=== PATIENT | female | born 1940 | race Caucasian/White ===

== ENCOUNTER 2017-12-21 15:11 | Emergency (ER) | payer MEDICARE, OTHER ==
[~2017-12-21] VITALS: Ht 162.6 cm; Wt 73.2 kg
[2017-12-21 15:12] VITALS: BP 118/73
== END 2017-12-21 17:15 | disposition home or self-care (01) ==
LOC: ER 15:12
DX: S63.592A Other specified sprain of left wrist, initial encounter (principal); S50.02XA Contusion of left elbow, initial encounter; Z88.0 Allergy status to penicillin; W18.49XA Other slipping, tripping and stumbling without falling, initial encounter; Y93.89 Activity, other specified; Y92.89 Other specified places as the place of occurrence of the external cause; Y99.9 Unspecified external cause status
CPT/HCPCS: 73080; 73110; 99284

== ENCOUNTER 2018-08-27 19:18 | Emergency (ER) | payer MEDICARE ==
[~2018-08-27] VITALS: Ht 160 cm; Wt 73.9 kg
[~2018-08-27 19:18] MED LIST: CIPR-230 PO
[2018-08-27] MEDS ORDERED: aspirin 81mg tab.chew PO ONE (19:20)
[2018-08-27 19:33] VITALS: BP 134/61
[2018-08-27 19:46] LABS: BASOPHILS % (AUTO) 0.4 % (0-1); EOSINOPHILS # (AUTO) 0.1 X10'3 (0-0.9); EOSINOPHILS % (AUTO) 1.5 % (0-6); HEMATOCRIT 37.6 % (35.0-45.0); HEMOGLOBIN 12.3 g/dl (12.0-16.0); LYMPHOCYTES # (AUTO) 1.3 X10'3 (1.1-4.8); MEAN CORPUSCULAR HGB CONC 32.6 g/dL (33.0-36.5); MEAN CORPUSCULAR VOLUME 88.8 FL (78-98); MEAN PLATELET VOLUME 7.5 FL (7.4-10.4); MONOCYTES # (AUTO) 0.6 X10'3 (0-0.9); MONOCYTES % (AUTO) 6.7 % (2-12); NEUTROPHILS # (AUTO) 7.4 X10'3 (1.8-7.7); NEUTROPHILS % (AUTO) 77.4 % (42-75); PLATELET COUNT 313 X10'3 (140-440); RED BLOOD COUNT 4.23 X10'6 (4.20-5.60); RED CELL DISTRIBUTION WIDTH 13.7 % (11.5-14.5); WHITE BLOOD COUNT 9.5 X10'3 (4.5-11.0)
[2018-08-27 19:56] LABS: ALANINE AMINOTRANSFERASE 13 U/L (12-78); ALBUMIN 3.7 G/DL (3.4-5.0); ALBUMIN/GLOBULIN RATIO 1.2 (1.1-1.5); ALKALINE PHOSPHATASE 71 IU/L (46-116); ANION GAP 14 (8-16); ASPARTATE AMINO TRANSFERASE 6 U/L (10-37); BILIRUBIN,TOTAL 0.4 MG/DL (0.1-1.0); BLOOD UREA NITROGEN 13 MG/DL (7-18); BUN/CREATININE RATIO 15.9 (6.6-38.0); CALCIUM 8.4 MG/DL (8.5-10.1); CHLORIDE 103 MMOL/L (99-107); CREATININE 0.82 MG/DL (0.40-0.90); GLUCOSE 90 MG/DL (70-104); POTASSIUM 3.9 MMOL/L (3.5-5.1); SODIUM 142 MMOL/L (135-145); TOTAL CARBON DIOXIDE 25.4 MMOL/L (24-32); TOTAL PROTEIN 6.8 G/DL (6.4-8.2); eGFR 68 ML/MIN
[2018-08-27 20:02] LABS: MAGNESIUM 1.5 MG/DL (1.5-2.4)
[2018-08-27] MEDS ORDERED: acetaminophen 325mg tablet PO ONE (20:20)
[2018-08-27 20:46] LABS: CLARITY,URINE CLEAR (Clear); COLOR,URINE YELLOW (Yellow); GLUCOSE, URINE NEGATIVE (Neg); KETONES,URINE NEGATIVE (Neg); LEUKOCYTE ESTERASE ,URINE SMALL (Neg); NITRITES, URINE NEGATIVE (Neg); OCCULT BLOOD,URINE TRACE-INTACT (Neg); PH,URINE 5.5 (4.8-8.0); PROTEIN,URINE NEGATIVE (Neg); UROBILINOGEN,URINE 0.2 E.U/dL (0.2-1.0)
[2018-08-27 20:50] LABS: UA COLLECTION TYPE CLN CATCH MIDSTREAM
[2018-08-27 20:54] LABS: MUCUS STRANDS MODERATE /LPF (Neg); SQUAMOUS EPITHELIAL CELL,UR MANY /LPF (FEW)
[2018-08-27 20:55] LABS: BACTERIA,URINE FEW /HPF (Neg); RBC,URINE 0-2 /HPF (0-2); WBC,URINE 0-4 /HPF (0-4)
[2018-08-27] MEDS ORDERED: cephalexin 250mg capsule PO ONE (21:10)
[2018-08-27] MEDS ORDERED: CEPH500C5 PO (21:12)
== END 2018-08-27 21:29 | disposition home or self-care (01) ==
LOC: ER 19:18
DX: S00.83XA Contusion of other part of head, initial encounter (principal); S10.93XA Contusion of unspecified part of neck, initial encounter; R07.89 Other chest pain; R53.1 Weakness; G20 Parkinson's disease; Z88.0 Allergy status to penicillin; Z79.899 Other long term (current) drug therapy; W22.8XXA Striking against or struck by other objects, initial encounter; Y93.89 Activity, other specified; Y92.89 Other specified places as the place of occurrence of the external cause; Y99.8 Other external cause status
CPT/HCPCS: 36415; 71045; 80053; 81001; 83735; 83880; 84484; 85025; 93005; 99284

== ENCOUNTER 2018-11-15 19:52 | Emergency (ER) | payer MEDICARE ==
[~2018-11-15] VITALS: Ht 162.6 cm; Wt 71.0 kg
[~2018-11-15 19:52] MED LIST changes: +CEPH500C5 PO; -CIPR-230 PO
[2018-11-15 22:10] VITALS: BP 126/59
[2018-11-15] MEDS ORDERED: ketorolac tromethamine 15mg/ml inj. IM ONE (23:40)
[2018-11-15] MEDS ORDERED: orphenadrine citrate 60mg/2ml inj. IM ONE (23:40)
== END 2018-11-16 00:07 | disposition home or self-care (01) ==
LOC: ER 19:52
DX: S00.03XA Contusion of scalp, initial encounter (principal); G20 Parkinson's disease; Z88.0 Allergy status to penicillin; Z88.1 Allergy status to other antibiotic agents; W18.39XA Other fall on same level, initial encounter; Y93.89 Activity, other specified; Y92.89 Other specified places as the place of occurrence of the external cause; Y99.8 Other external cause status
CPT/HCPCS: 70450; 96372; 99284; J1885; J2360

== ENCOUNTER 2019-04-18 16:45 | Emergency (ER) | payer MEDICARE ==
[~2019-04-18] VITALS: Ht 160 cm; Wt 65.9 kg
[2019-04-18 16:46] VITALS: BP 135/90
[2019-04-18] MEDS ORDERED: ketorolac trometh inj. 60 MG/2 ML VIAL IM ONE (18:00)
[2019-04-18] MEDS ORDERED: acetaminophen 325mg tablet PO ONE (18:05)
[2019-04-18] MEDS ORDERED: LIDOcaine 5% patch TP SCH (18:10)
== END 2019-04-18 18:47 | disposition home or self-care (01) ==
LOC: ER 16:46
DX: S76.912A Strain of unspecified muscles, fascia and tendons at thigh level, left thigh, initial encounter (principal); G20 Parkinson's disease; Z88.0 Allergy status to penicillin; Z79.2 Long term (current) use of antibiotics; X58.XXXA Exposure to other specified factors, initial encounter; Y93.89 Activity, other specified; Y92.89 Other specified places as the place of occurrence of the external cause; Y99.8 Other external cause status
CPT/HCPCS: 73521; 73552; 96372; 99284; J1885

== ENCOUNTER 2019-12-07 17:22 | Emergency (ER) | payer MEDICARE ==
[~2019-12-07] VITALS: Ht 160 cm; Wt 59.9 kg
[2019-12-07] MEDS ORDERED: ketorolac tromethamine 0.5% ophthalmic drops EACHEYE ONE (18:40)
[2019-12-07 18:49] VITALS: BP 106/60
== END 2019-12-07 19:05 | disposition home or self-care (01) ==
LOC: ER 17:22
DX: H10.13 Acute atopic conjunctivitis, bilateral (principal); G20 Parkinson's disease; Z88.0 Allergy status to penicillin
CPT/HCPCS: 99282

== ENCOUNTER 2021-04-02 09:43 | Emergency (ER) | payer MEDICARE ==
[~2021-04-02] VITALS: Ht 160 cm; Wt 55.0 kg
[2021-04-02 10:00] VITALS: BP 99/65
== END 2021-04-02 12:20 | disposition home or self-care (01) ==
LOC: ER 09:44
DX: U07.1 COVID-19 (principal); G20 Parkinson's disease; J02.9 Acute pharyngitis, unspecified; R05.9 Cough, unspecified; R32 Unspecified urinary incontinence; Z87.440 Personal history of urinary (tract) infections; Z88.0 Allergy status to penicillin
CPT/HCPCS: 87635; 99283; C9803

== ENCOUNTER 2023-12-26 20:45 | Emergency (ER) | payer MEDICARE, MEDICAID ==
[~2023-12-26] VITALS: Ht 160 cm; Wt 71.0 kg
[2023-12-26 22:15] VITALS: TEMP 98.1
[2023-12-26] MEDS: ketorolac trometh 15mg/ml vial 15 MG/ML ML IM ONE (22:52)
[2023-12-26 23:17] VITALS: BP 122/61; PULSE 66; RESP 16; O2SAT 95
== END 2023-12-26 23:34 | disposition home or self-care (01) ==
LOC: ER 20:46
DX: M25.561 Pain in right knee (principal); Z88.0 Allergy status to penicillin
CPT/HCPCS: 73560; 96372; 99284; J1885

== ENCOUNTER 2024-10-24 15:11 | Emergency (ER) | payer MEDICARE, MEDICAID ==
[~2024-10-24] VITALS: Ht 161.3 cm; Wt 70.0 kg
[2024-10-24 15:16] VITALS: TEMP 97.9
--- NOTE | 2024-10-24 15:36 | Physician Documentation ---
History of Present Illness ~ Chief Complaint: Hip pain Stated Complaint: FALL Time Seen by MD: 15:31 Primary Medical Doctor: danielle SHAHID This is a very pleasant 84-year-old female who was brought in to us for evaluation of potential injuries sustained in a mechanical ground level fall. She states that she was walking with her walker, hit the door jamb, and I went flying, I was not meant to fly, not even an airplane". She reports an immediate onset pain in her right hip. The pain is now improving. She did strike her head. No loss of consciousness. No blood thinners. She states that her ankle is not looking right. Denies any headache, chest pain, difficulty breathing, nausea, vomiting, abdominal pain. No concern for tobacco, alcohol or illicit substances use Tetanus within 5 Years?: No Medication Reconciliation Allergies: Coded Allergies: Penicillins (Verified Allergy, Unknown, Rash, vomiting, 12/26/23) Past Medical History Past Medical History: Parkinson's Disease, UTI Past Surgical History: no surgical history Alcohol Use: None Lives with: Family Lives In: Home Review of Systems ROS 10 point review of systems was performed and unless noted above in HPI is negative for acute process/complaint. Physical Exam Vital Signs: Temperature: 97.9, Source: Oral, Heart Rate: 71, Respiratory Rate: 16, BP: 146/81, Pulse Oximetry: 96, Weight: 70.000 Oxygen Flow Rate: 0 Physical Exam GENERAL: Awake, alert, oriented, GCS 15, no apparent distress, non-toxic appearing, answers questions, follows commands appropriately. Pleasant elderly lady examined in bed 7. HEENT: Atraumatic, normocephalic, pupils equal, extraocular muscles intact, sclerae anicteric, mucus membranes moist, oropharynx is clear, no stridor. NECK: supple, full active range of motion, trachea midline, no thyromegaly, no lymphadenopathy, no JVD. CARDIOVASCULAR: regular rate/rhythm, no murmurs/gallops/rubs, Pulses are 2+ in all extremities and symmetric. Capillary refill less than 2 seconds. PULMONARY: Nonlabored, good air movement ,no respiratory distress, speaking in full sentences, clear to auscultation bilaterally, no wheezing, no ronchi, no rales, no accessory muscle use. GASTROINTESTINAL: Soft, non-tender, non-distended, normal active bowel sounds, no organomegaly, no pulsatile masses, no CVA tenderness. NEUROLOGIC: Lucid with normal mental status. Normal facial symmetry. Moves all extremities symmetrically and with purpose. No truncal ataxia. Speech is fluid without evidence of dysarthria or aphasia, no focal deficits appreciated. MUSCULOSKELETAL: There is full range of motion of all extremities. There is no joint pain or joint swelling or joint erythema. There is no muscle pain or tenderness or swelling. EXTREMITIES: warm, well-perfused, no cyanosis, no clubbing, no edema, no acute deformities. Skin: warm, dry, no rashes or lesions, no jaundice, no petechiae orpurpura. No ecchymosis. PSYCHIATRIC: Normal affect, normal insight, normal concentration. Focused exam: Right lower extremity examined. The ankle is internally rotated and there appears to be some swelling over the lateral malleolus. It is somewhat tender with the range of motion done passively. No tenderness to palpation over the pubic symphysis, no tenderness to palpation over the greater trochanter. Range of motion not tested in order to avoid causing pain. Neurovascularly intact. Patient has been placed in a C-collar by the EMS. She has severe left lateral angulation of her cervical spine. Progress Results/Orders Results/Orders Orders - TENISHA HILL DO Hip Unilateral 2 Views (10/24/24 15:26) Ankle, Complete(3vw Min) (10/24/24 15:30) Ct Head (10/24/24 16:00) Ct Cervical Spine (10/24/24 16:01) Completed Orders - TENISHA HILL DO Hip Unilateral 2 Views (10/24/24 15:26) Ankle, Complete(3vw Min) (10/24/24 15:30) Ct Head (10/24/24 16:00) Ct Cervical Spine (10/24/24 16:01) Vital Signs 10/24/24 10/24/24 10/24/24 15:16 15:37 16:25 Temp 97.9 Pulse 71 78 Resp 16 16 16 B/P (MAP) 146/81 162/87 (112) Pulse Ox 96 99 O2 Flow Rate 0 0 Medical Decision Making Findings Facility Status: ED Holds, [facility] process The plan was discussed with the patient, who demonstrates clear understanding of the plan and is in agreement with the plan unless otherwise noted in the chart. All questions have been answered, all concerns were addressed unless otherwise documented. I was available throughout their ED stay for frequent reassessment and questions. Differential Diagnoses (considered and possible or likely): [Ground level fall, acute traumatic pain, closed head injury, concussion, subdural, subarachnoid, cervical spine fracture or subluxation, right hip fracture, dislocation, right ankle fracture or dislocation] ??Differential Diagnoses (considered and unlikely, not requiring evaluation currently): [No evidence of lateralizing signs to suspect a stroke at this time] MDM Data Please see [facility] for the following: Independent Historians and external Records Review. Historian: [Patient] Independent Historians: ?[EMS, record review] Medication Management: [Reviewed medication list] Social History and determinants: [Reviewed] Please see the body of the note for the following: Any independent interpretations of ECG, imaging studies. All vitals signs/haemodynamics, ordered tests were independently reviewed and interpreted by myself. Nursing triage complaint and vitals reviewed, additional nursing notes were reviewed as available and I agree unless otherwise noted or documented in contradiction in the chart Vital Signs: Independently reviewed Labs: Independently interpreted Imaging: Independently interpreted Old Medical Records: Independently reviewed, see [facility] for relevant summary and information Pulse Oximetry: [96%] interpreted as [normal on room air] by me [Fixture Builder: [Regular Rate, Regular rhythm, no ectopy, NSR] reviewed and interpreted by me] Additionally notably showing: [Hemodynamics reviewed. The patient isn't febrile, not tachycardic, no evidence of hypotension respiratory distress. Head CT was obtained showing no acute intracranial hemorrhage. CT C-spine was obtained showing no fracture or subluxation. Foot and ankle showed old fracture. Mild soft tissue edema. Hip x-ray showed no fracture or dislocation.] Tests considered but not ordered include: [Hematologic workup has been considered but does not appear to be necessary given mechanical nature of the injury.] Social Determinants of Health Impact: Patient was evaluated in [facility] [place] healthcare due to below par ratio of patient to medical providers. [] Comorbid Conditions Impacting Present Evaluation and Care/Treatment: [Dementia, poor ambulation skills] Management Discussions with other Healthcare Providers: [None] Treatment and Disposition Medication Management (Given or considered): [Pain management was offered, but patient declined]. See EMR for details Consideration for Hospitalization/Escalation/Deescalation of Care: Admission for observation has been considered, [however the patient is able to tolerate p.o., their symptoms are controlled, they are able to rely on oral medications, and their chief complaint/diagnosis can be managed on outpatient basis.] ?ED Course:?[No clinical deterioration.] ?Shared decision making:?[Patient is hemodynamically stable for discharge home with follow with their primary care provider. [ ] Specific and cautious return precautions provided and discussed with full understanding. Any incidental findings were also discussed and follow up recommendations given. [] All questions answered. Patient/family were able to verbalize back return precautions. Patient/family agree to plan. Copies of imaging and laboratory studies were provided.] Code status:?FULL Please see the full Electronic Medical Record for full details of nursing documentation, medications list, other records of complete past medical history and conditions, vital signs, laboratory studies, and any radiologic study interpretations by radiologists. Portions of this note were completed using [employer] dictation software and as a result there may exist minor errors in spelling. I have reviewed elements of past family and social history and agree as included in note. Departure Disposition: 01 HOME / SELF CARE / HOMELESS Impression: Primary Impression: Ground-level fall Additional Impressions: Acute traumatic pain Contusion of right hip Right ankle sprain Closed head injury Condition: Stable Discharge Instructions: Fall Prevention in the Home, Adult, Head Injury, Adult Referrals: NO PRIMARY CARE PROVIDER (PCP) Education Educated: Patient Educated regarding: diagnosis, treatment, prognosis, need for follow up Signature Scribe Signature: No scribe Attestation: This note accurately reflects clinical decisions, work performed by myself, DO LIZ Dunn NICHOLAS M DO Oct 24, 2024 15:35
--- NOTE | 2024-10-24 16:08 | RADIOLOGY REPORT ---
Indication: RIGHT ANKLE PAIN Technique: DI ANKLE, COMPLETE(3VW MIN)ANKLECPLT Comparison: None FINDINGS/IMPRESSION: Moderate degenerative changes of the right ankle. Cortical irregularity of the distal fibula / lateral malleolus, likely old fracture. Correlate with point tenderness to exclude superimposed acute fracture. Mild soft tissue edema about the medial and lateral malleolar region. Osteopenia.
--- NOTE | 2024-10-24 16:12 | RADIOLOGY REPORT ---
CT CT HEAD Indication: fall with head strike, pain EXAM DATE: 10/24/2024 03:53 PM COMPARISON: None TECHNIQUE: CT of the head without intravenous contrast. RADIATION DOSE: CTDIvol: 64 mGy, DLP: 1137 mGy*cm FINDINGS: There is no intracranial hemorrhage. There is no extra-axial fluid, mass, mass effect or midline shif t. The ventricles are midline and normal in size. Basilar cisterns are patent. Mild periventricular a nd subcortical white matter chronic microvascular ischemic changes. Mild global cerebral volume loss . The paranasal sinuses and mastoids are well-pneumatized. Imaged portion of the orbits are unremarkabl e. IMPRESSION: No intracranial hemorrhage or mass effect. Mild chronic microvascular ischemic changes. Mild global cerebral volume loss.
--- NOTE | 2024-10-24 16:16 | RADIOLOGY REPORT ---
CLINICAL INDICATION: HIP PAIN TECHNIQUE: 3 radiographic views of the right hip were obtained. Comparison: None FINDINGS/IMPRESSION: There is no evidence of acute fracture or dislocation. Moderate degenerative changes of bilateral hips. Left-sided sacral nerve stimulator is noted. Severe degenerative changes of the lower lumbar spine. The alignment is anatomical. Phleboliths are noted within the pelvis.
--- NOTE | 2024-10-24 16:20 | RADIOLOGY REPORT ---
Indication: fall with head strike, pain Technique: CT axial images of the cervical spine are obtained without contrast. Coronal and sagittal reformats were obtained. Radiation Dose Information: CTDI volume is 23 mGy. Dose-length product is 507 mGy*cm Comparison: None FINDINGS: The cervical vertebral body heights are maintained. Reversal of normal cervical spine curvature. 3 m m anterolisthesis C3 upon C4. There is 3 mm anterolisthesis C7 upon T1. Cervical dextrocurvature. Th ere is moderate to severe multilevel disc space narrowing. No prevertebral edema. Facet articulations demonstrate moderate to severe facet hypertrophic changes . The atlantooccipital, atlantoaxial artic ulations are intact. IMPRESSION: Moderate to severe cervical degenerative disc disease. Reversal of cervical spine curvature as described. Moderate to severe facet hypertrophic changes.
[2024-10-24 17:07] VITALS: BP 165/88; PULSE 79; RESP 16; O2SAT 99
[2024-10-28] MEDS ORDERED: ASPI-107 PO (23:35)
[2024-10-28] MEDS ORDERED: CARB1TAB44 PO (23:35)
[2024-10-28] MEDS ORDERED: MELA10CA11 PO (23:35)
[2024-10-28] MEDS ORDERED: DULO30CA52 PO (23:35)
[2024-10-28] MEDS ORDERED: BACL10TA2 PO (23:35)
[2024-10-28] MEDS ORDERED: CETI-194 PO (23:35)
[2024-10-28] MEDS ORDERED: QUET25TA PO (23:35)
[2024-10-28] MEDS ORDERED: CARB1TAB42 PO (23:35)
[2024-10-28] MEDS ORDERED: DONE-55 PO (23:35)
[2024-10-28] MEDS ORDERED: GABA-1405 PO (23:35)
[2024-10-30] MEDS ORDERED: MELA5TAB66 PO (12:42)
[2024-10-30] MEDS ORDERED: CARB-312 PO (12:45)
[2024-10-30] MEDS ORDERED: DONE10TA44 PO (12:46)
[2024-10-31] MEDS ORDERED: CIPR-259 PO (10:47)
[2024-10-31] MEDS ORDERED: LISI10TA27 PO (10:47)
== END 2024-10-24 17:08 | disposition home or self-care (01) ==
LOC: ER 15:13
DX: S93.401A Sprain of unspecified ligament of right ankle, initial encounter (principal); S70.01XA Contusion of right hip, initial encounter; S09.90XA Unspecified injury of head, initial encounter; G20.A1 Parkinson's disease without dyskinesia, without mention of fluctuations; G89.11 Acute pain due to trauma; Z88.0 Allergy status to penicillin; W18.30XA Fall on same level, unspecified, initial encounter; Y93.01 Activity, walking, marching and hiking; Y92.89 Other specified places as the place of occurrence of the external cause; Y99.8 Other external cause status
CPT/HCPCS: 70450; 72125; 73502; 73610; 99284

== ENCOUNTER 2024-11-07 15:25 | Emergency (ER) | payer MEDICARE, MEDICAID ==
[~2024-11-07] VITALS: Ht 162.6 cm; Wt 64.0 kg
[~2024-11-07 15:25] MED LIST changes: +ASPI-107 PO; +CARB-312 PO; +CARB1TAB42 PO; -CEPH500C5 PO; +DONE10TA44 PO; +DULO30CA52 PO; +GABA-1405 PO; +LISI10TA27 PO; +MELA5TAB66 PO; +QUET25TA PO
[2024-11-07 15:32] VITALS: TEMP 97.6
--- NOTE | 2024-11-07 15:33 | Physician Documentation ---
History of Present Illness ~ Stated Complaint: ALOC Time Seen by MD: 15:32 Primary Medical Doctor: danielle SHAHID This is an 84-year-old female who was brought into the emergency department by ambulance. She resides at [facility]. The staff there called the ambulance because she has been hallucinating, more lethargic than usual, and was found slumped over on the toilet today. She has a history of recurrent urinary tract infections, and is currently on ciprofloxacin. Patient has a history of Parkinson's and dementia. EMS reports that her systolic BPs were in the 90's and that they administered NS 500 ml IV en route. Here for an admission 10/28/24- 10/31/24 at which time the workup showed CT head with no acute findings, echocardiogram with moderate aortic valve sclerosis, moderate mitral valve regurgitation, ejection fraction 50-55%. She was thought to have a urinary tract infection, although review of the urine culture from that time shows mixed jevon. Blood cultures x2 demonstrated no growth. Her daughters contribute to her history, reporting that she has been in assisted living for about a month. They note concerns for worsening of her baseline status over the last couple of weeks. This includes a lean to the left, and a worsening of a chronic right foot drop. MRI not done at last visit due to presence of stimulator. Medication Reconciliation Allergies: Coded Allergies: Penicillins (Verified Allergy, Unknown, Rash, vomiting, 12/26/23) Scheduled Aspirin (Aspirin Ec), 1 TAB PO DAILY, (Reported) Carbidopa/Levodopa (Carbidopa-Levo ER 50-200 Tab), 1 TAB PO HS, (Reported) Carbidopa/Levodopa 25/100 MG* (Sinemet 25/100 MG*), 1 TAB PO 5X/DAY, (Reported) Donepezil Hcl (Donepezil Hcl), 1 TAB PO DAILY, (Reported) Duloxetine HCl (Duloxetine HCl), 2 CAP PO DAILY, (Reported) Gabapentin (Gabapentin), 1.5 TAB PO DAILY, (Reported) Lisinopril (Lisinopril), 10 MG PO DAILY Quetiapine Fumarate (Seroquel), 2 TAB PO HS, (Reported) Scheduled PRN Melatonin (Melatonin), 1 TAB PO HS PRN for sleep, (Reported) Discontinued Medications Baclofen (Baclofen), 1 TAB PO HS, (Reported) Cetirizine HCl (Aller-Bob), 1 TAB PO DAILY, (Reported) Ciprofloxacin HCl (Cipro), 1 TAB PO Q12H Discontinued Reason: Auto Discontinued Past Medical History Past Medical History: Parkinson's Disease, UTI Past Surgical History: no surgical history Alcohol Use: None Lives with: Family Lives In: Home Review of Systems ROS As stated above in the HPI, otherwise all systems are reviewed and negative. Physical Exam General Appearance General: Alert, no apparent distress. Respiratory: Lungs clear, no respiratory distress. Chest: No accessory muscle use. Cardiovascular: Regular rate and rhythm, 3/6 murmur. Gastrointestinal: Soft, nontender, nondistended. Bowels sounds present. Extremities: Right foot in plantar flexion, fixed. Neurologic: Leans left. Right foot drop. Answers simple questions, follows simple commands. Psychiatric: Normal mood and affect. Skin: Normal color, warm and dry. No edema, no ecchymosis. Progress Results/Orders Results/Orders Orders - YASMIN HOLT CERTIFIED NURSE MIDWIFE Culture Blood (11/07/24 15:37) Chest,Single View (11/07/24 15:51) Straight Cath For Urine Sample (11/07/24 15:37) * Iv Access / Saline Lock * (11/07/24 16:41) Normal Saline 500ml Iv Soln (Sodium Chlo (11/07/24 16:45) Completed Orders - YASMIN HOLT CERTIFIED NURSE MIDWIFE Electrocardiogram (11/07/24 15:37) Cbc/Diff (11/07/24 15:37) MG (11/07/24 15:37) Urinalysis, Cult If Indicated (11/07/24 15:37) Chest,Single View (11/07/24 15:51) Procalcitonin (11/07/24 15:37) BMP (11/07/24 15:37) Lacticsepsis (11/07/24 15:37) Medications Received in ER Medications (Trade) Dose Ordered Sig/Timi Route PRN Reason Start Time Stop Time Status Last Admin Dose Admin Sodium Chloride 500 ml @ 250 mls/hr Q2H ONCE IV 11/07/24 16:45 11/07/24 18:44 11/07/24 17:15 250 MLS/HR Vital Signs 11/07/24 11/07/24 11/07/24 15:32 15:41 17:20 Temp 97.6 Pulse 72 74 Resp 14 16 16 B/P (MAP) 104/50 127/60 (82) Pulse Ox 100 98 O2 Flow Rate 0 0 Laboratory Tests Test 11/07/24 16:06 11/07/24 17:15 White Blood Count 8.7 Red Blood Count 3.83 L Hemoglobin 11.2 L Hematocrit 33.6 L Mean Corpuscular Volume 87.7 Mean Corpuscular Hemoglobin 29.2 Mean Corpuscular Hemoglobin Concent 33.3 Red Cell Distribution Width 14.8 H Platelet Count 293 Mean Platelet Volume 7.8 Neutrophils (%) (Auto) 85.5 H Lymphocytes (%) (Auto) 5.6 L Monocytes (%) (Auto) 7.1 Eosinophils (%) (Auto) 1.2 Basophils (%) (Auto) 0.6 Neutrophils # (Auto) 7.4 Lymphocytes # (Auto) 0.5 L Monocytes # (Auto) 0.6 Eosinophils # (Auto) 0.1 Basophils # (Auto) 0.1 CBC Comment Sodium Level 143 Potassium Level 3.6 Chloride Level 108 H Carbon Dioxide Level 26.5 Anion Gap 9 Blood Urea Nitrogen 16 Creatinine 0.94 H Estimated GFR/1.73 m2 57 BUN/Creatinine Ratio 17.0 Glucose Level 97 Lactic Acid Level 1.6 Calcium Level 8.6 Magnesium Level 1.8 Albumin 3.2 L Procalcitonin < 0.05 Chemistry Comments Urine Specimen Description Non-specified Urine Color Yellow Urine Clarity Clear Urine pH 6.0 Urine Specific Flushing 1.020 Urine Protein Negative Urine Glucose (UA) Negative Urine Ketones 15 H Urine Occult Blood Negative Urine Nitrite Negative Urine Bilirubin Negative Urine Urobilinogen 0.2 Urine Leukocyte Esterase Negative Urine Culture Indicated Not ind Volume Urine Centrifuged 10 ml Urine Comment Microbiology Date/Time Source Procedure Growth Status 11/07/24 16:06 Blood Arm Left Blood Culture - Preliminary NEGATIVE (LESS THAN 24 HOURS) Resulted EKG/XRAY/CT/US/VASC/MRI EKG : Additional Comment 1542 EKG interpreted to show RSR rate of [address]. [address] segment elevation. QTC 508 ms. Chest X-Ray : Additional Comments [facility] [address] [facility], [facility] [address] DIAGNOSTIC RADIOLOGY Patient: CAMILLA AYALA Medical Record: [id number] [facility] : 1940, Age: 84 Sex: Female Location: ER Patient Status: [facility] ER Service Date/Time: 11/07/24/ 1551 Ordering Physician: YASMIN HOLT NP Exam: CHEST,SINGLE VIEW CHEST RADIOGRAPH Indication: SEPSIS Technique: DI CHEST,SINGLE VIEW Comparison: None FINDINGS: 1 The cardiac silhouette is unremarkable. The lungs demonstrate no pulmonary airspace consolidation. The pulmonary vasculature is unremarkable. There is no pleural effusion. There is no pneumothorax. Aortic atherosclerotic disease. Moderate degenerative changes bilateral shoulders. IMPRESSION: No pulmonary airspace consolidation. Electronically Signed by:AXEL LOPEZ MD Date & Time: 11/07/241607 Dictated by: AXEL LOPEZ MD Dictation date and time: 11/07/241607 Primary Care Provider: NO PRIMARY CARE PROVIDER cc: YASMIN HOLT CERTIFIED NURSE MIDWIFE ~ Medical Decision Making Differential Dx:Considerations: Include: Mccann's Palsey, CVA, Delirium tremens, DKA, Drug overdose, Electrolyte imbalance, Encephalopathy, Hypoxemia, Hypogl ycemia, Mass lesion, Respiratory failure, Subarachnoid Hemorrhage, TIA Additional Information 84-year-old female who was brought per EMS from her assisted living facility at [facility] due to concerns for alteration in her usual level of mental status. In addition, they were noting hallucinations. Her daughters were at the bedside, and they reported that she did not seem more lethargic than usual. They do note that she suffers from chronic urinary tract infections. However, t he recent culture from her hospitalization earlier this month did not show any growth, and neither to the blood cultures. In the emergency department a cath urine was obtained and showed no evidence of infection. The patient was then considered appropriate for return to assisted living facility. Her daughters are encouraged to have her follow up with her primary care provider, or to bring her back to the emergency department with any concerns at any time. Departure Time of Disposition: 18:12 Impression: Primary Impression: Dementia Additional Impression: Altered mental status Condition: Stable Discharge Instructions: Altered Mental Status Additional Instructions: Labs overall looked good. Urine culture from recent visit did not show growth. UA done in the ER was normal. STOP the Ciprofloxacin. Please have Camilla followup with her PCP. She should return if worse at any time. Referrals: NO PRIMARY CARE PROVIDER (PCP) Education Educated: Patient, Family Educated regarding: diagnosis, treatment, prognosis, need for follow up Signature Scribe Signature: x Attestation: The note accurately reflects work and decisions made by me.Yasmin Rodriguez NP 11/07/24 15:36 YASMIN HOLT NP Nov 07, 2024 15:33
--- NOTE | 2024-11-07 15:43 | ELECTROCARDIOGRAPH REPORT ---
[facility] Test Date: 2024-11-07 Test Time: 15:42:05 Pat Name: CAMILLA AYALA Department: [facility]-ER Patient ID: [facility]-[id number] Room: Gender: F Tub Rider: : 1940 Requested By: TANG HOLT Order Number: [id number] Reading MD: Measurements Intervals [place] Rate: 72 P: -5 SD: 143 QRS: -15 QRSD: 151 T: -8 QT: 464 QTc: 508 Interpretive Statements Sinus rhythm Right bundle branch block Please click the below link to view image of tracing.
--- NOTE | 2024-11-07 16:07 | RADIOLOGY REPORT ---
CHEST RADIOGRAPH Indication: SEPSIS Technique: DI CHEST,SINGLE VIEW Comparison: None FINDINGS: 1 The cardiac silhouette is unremarkable. The lungs demonstrate no pulmonary airspace consolidation. The pulmonary vasculature is unremarkable. There is no pleural effusion. There is no pneumothorax. Aortic atherosclerotic disease. Moderate degenerative changes bilateral shoulders. IMPRESSION: No pulmonary airspace consolidation.
[2024-11-07 16:15] LABS: MEAN PLATELET VOLUME 7.8 FL (7.4-10.4); RED CELL DISTRIBUTION WIDTH 14.8 % (11.5-14.5)
[2024-11-07 16:28] LABS: CREATININE 0.94 MG/DL (0.40-0.90); TOTAL CARBON DIOXIDE 26.5 MMOL/L (24-32); eCRCL 40 ML/MIN; eGFR 57 ML/MIN
[2024-11-07] MEDS: normal saline 500ml IV soln 500 ML IV ONE (17:15)
[2024-11-07 18:04] LABS: LEUKOCYTE ESTERASE ,URINE NEGATIVE (Neg); NITRITES, URINE NEGATIVE (Neg); OCCULT BLOOD,URINE NEGATIVE (Neg)
[2024-11-07 18:13] LABS: UA COLLECTION TYPE NON-SPECIFIED
[2024-11-07 18:17] VITALS: BP 119/62; PULSE 69; RESP 16; O2SAT 98
== END 2024-11-07 18:34 ==
LOC: ER 15:26
DX: G20.A1 Parkinson's disease without dyskinesia, without mention of fluctuations (principal); F02.82 Dementia in other diseases classified elsewhere, unspecified severity, with psychotic disturbance; R41.82 Altered mental status, unspecified; Z88.0 Allergy status to penicillin; Z79.82 Long term (current) use of aspirin; Z88.8 Allergy status to other drugs, medicaments and biological substances
CPT/HCPCS: 36415; 71045; 80048; 81003; 83605; 83735; 84145; 85025; 87040; 93005; 99285; C1758; J7040

== ENCOUNTER 2024-11-20 19:14 | Emergency (ER) | payer MEDICARE, MEDICAID ==
[~2024-11-20] VITALS: Ht 160 cm; Wt 70.0 kg
[2024-11-20 19:29] VITALS: TEMP 98.2
--- NOTE | 2024-11-20 21:32 | RADIOLOGY REPORT ---
CLINICAL HISTORY: FALL TECHNIQUE: Helical scanning was performed of the head from the skull base to the vertex. Multiplanar reconstructions were performed. This exam was performed according to our departmental dose optimization program. Up-to-date CT equipment and radiation dose reduction techniques are utilized as appropriate. CTDI 66.6 DLP 1253 COMPARISON: CT CT HEAD on DOS: 10/31/24, CT CT FACIAL BONES/SOFT TISSUE on DOS: 10/28/24, CT CT STROKE ALERT on DOS: 10/28/24, CT CT HEAD on DOS: 10/24/24 FINDINGS: There is no evidence for acute intracranial hemorrhage, acute ischemic changes, mass, mass effect, or extra-axial fluid collection. There is no hydrocephalus or midline shift. There is no effacement of the cerebral sulci and basal subarachnoid cisterns. The valera-white matter differentiation is well maintained. There is mild brain volume loss. There has been bilateral cataract extraction. The imaged paranasal sinuses are clear. IMPRESSION: NO ACUTE INTRACRANIAL ABNORMALITY SEEN.
--- NOTE | 2024-11-20 21:40 | RADIOLOGY REPORT ---
EXAM: CT CT CERVICAL SPINE INDICATION: FALL EXAM DATE: 11/20/2024 09:09 PM COMPARISON: CT CT HEAD on DOS: 11/20/24, CT CT HEAD on DOS: 10/31/24, CT CT CERVICAL SPINE on DOS: 10/28/24, CT CT FACIAL BONES/SOFT TISSUE on DOS: 10/28/24, CT CT STROKE ALERT on DOS: 10/28/24 TECHNIQUE: Multiple axial CT images of the cervical spine were obtained using bone algorithm. Axial and coronal reformatting was done. Bone and soft tissue windows were reviewed. Radiation Dose Information: CT Dose: CTDI volume is 18.73 mGy. Dose-length product is 420.1 mGy*cm FINDINGS: Evaluation is suboptimal due to positioning. There is no acute displaced fracture. There is grade 1 anterolisthesis of C3 on C4 , C4 on C5, C7 on T1, T1 on T2, and T2 on T3. There is reversal of the cervical lordosis. There are multilevel degenerative changes of the lumbar spine characterized by endplate osteophytosis and intervertebral disc space narrowing. Degenerative uncovertebral and facet hypertrophy contribute to multilevel neural foraminal narrowing. There are emphysematous changes at the lung apices. The paraspinal soft tissues are unremarkable. IMPRESSION: 1. Suboptimal evaluation due to positioning. Within this limitation, no CT evidence for acute displaced fracture. 2. Degenerative changes of the cervical spine as detailed. 3. If clinical symptoms persist, MRI may be beneficial in further evaluation. All CT scans at this medical facility are performed using dose modulation techniques as appropriate to a performed exam including the following: Automated exposure control was utilized; adjustment of the MA and/or KV according to patient size; and use of iterative reconstruction technique.
--- NOTE | 2024-11-20 21:42 | Physician Documentation ---
History of Present Illness ~ Chief Complaint: Mechanical Fall Stated Complaint: FALL Time Seen by MD: 21:36 Primary Medical Doctor: danielle Mode of Arrival: EMS HPI Patient presents to the emergency room with positive head strike while trying to get up out of bed this evening. She lives at a memory facility. She struck the left side of her face. Unknown loss of consciousness. Patient is full code. Patient noted to be hypotensive in route but responded to IV fluids. Tetanus within 5 Years?: No Medication Reconciliation Allergies: Coded Allergies: Penicillins (Verified Allergy, Unknown, Rash, vomiting, 11/20/24) Scheduled Aspirin (Aspirin Ec), 1 TAB PO DAILY, (Reported) Carbidopa/Levodopa (Carbidopa-Levo ER 50-200 Tab), 1 TAB PO HS, (Reported) Carbidopa/Levodopa 25/100 MG* (Sinemet 25/100 MG*), 1 TAB PO 5X/DAY, (Reported) Donepezil Hcl (Donepezil Hcl), 1 TAB PO DAILY, (Reported) Duloxetine HCl (Duloxetine HCl), 2 CAP PO DAILY, (Reported) Gabapentin (Gabapentin), 1.5 TAB PO DAILY, (Reported) Lisinopril (Lisinopril), 10 MG PO DAILY Quetiapine Fumarate (Seroquel), 2 TAB PO HS, (Reported) Scheduled PRN Melatonin (Melatonin), 1 TAB PO HS PRN for sleep, (Reported) Past Medical History Past Medical History: Parkinson's Disease, UTI Past Surgical History: no surgical history Alcohol Use: None Lives with: Family Lives In: Home Review of Systems ROS All review of systems negative except as per HPI Physical Exam Vital Signs: Temperature: 98.2, Source: Axillary, Heart Rate: 60, Respiratory Rate: 14, BP: 128/61, Pulse Oximetry: 98, Weight: 70.000 Oxygen Flow Rate: 0 Physical Exam General: Patient is is sleeping, easily arousable in no acute distress Head: Normocephalic with bruise to left forehead Eyes: Conjunctival normal. EOMI. PERRL. ENT: Mucous membranes moist. Neck: Supple, trachea is midline. Chest: Clear to auscultation bilaterally without rales, rhonchi, or wheezes. There is no accessory muscle use or retractions. Cardiac: RRR without murmurs, gallops, or rubs. Abd: Soft, nondistended, nontender, with normoactive bowel sounds. No guarding, rebound, or rigidity. Progress Results/Orders Results/Orders Orders - SHEMAR ALFONSO MD Ct Head (11/20/24 20:57) Ct Cervical Spine (11/20/24 ) Completed Orders - SHEMAR ALFONSO MD Ct Head (11/20/24 20:57) Ct Cervical Spine (11/20/24 ) Cbc/Diff (11/20/24 21:40) Urinalysis, Cult If Indicated (11/20/24 21:40) Procalcitonin (11/20/24 21:40) BMP (11/20/24 21:40) Vital Signs 11/20/24 11/20/24 11/20/24 11/20/24 19:29 19:50 21:28 23:02 Temp 98.2 Pulse 61 60 61 Resp 16 15 14 16 B/P (MAP) 92/51 128/61 (83) 142/68 (92) Pulse Ox 100 98 97 O2 Flow Rate 0 0 0 Laboratory Tests Test 11/20/24 21:47 11/20/24 22:55 White Blood Count 7.8 Red Blood Count 3.47 L Hemoglobin 10.2 L Hematocrit 30.7 L Mean Corpuscular Volume 88.5 Mean Corpuscular Hemoglobin 29.3 Mean Corpuscular Hemoglobin Concent 33.1 Red Cell Distribution Width 14.9 H Platelet Count 273 Mean Platelet Volume 8.4 Neutrophils (%) (Auto) 78.2 H Lymphocytes (%) (Auto) 10.2 L Monocytes (%) (Auto) 9.4 Eosinophils (%) (Auto) 1.5 Basophils (%) (Auto) 0.7 Neutrophils # (Auto) 6.1 Lymphocytes # (Auto) 0.8 L Monocytes # (Auto) 0.7 Eosinophils # (Auto) 0.1 Basophils # (Auto) 0.1 CBC Comment Sodium Level 147 H Potassium Level 3.9 Chloride Level 114 H Carbon Dioxide Level 26.5 Anion Gap 7 L Blood Urea Nitrogen 23 H Creatinine 1.05 H Estimated GFR/1.73 m2 50 BUN/Creatinine Ratio 21.9 H Glucose Level 102 Calcium Level 8.1 L Albumin 3.0 L Procalcitonin < 0.05 Chemistry Comments Urine Specimen Description Non-specified Urine Color Yellow Urine Clarity Clear Urine pH 5.5 Urine Specific [place] 1.025 Urine Protein Negative Urine Glucose (UA) Negative Urine Ketones 15 H Urine Occult Blood Negative Urine Nitrite Negative Urine Bilirubin Moderate Urine Urobilinogen 1.0 Urine Leukocyte Esterase Negative Urine Culture Indicated Not ind Volume Urine Centrifuged 10 ml Urine Comment Medical Decision Making Findings Patient presents to the emergency room after positive head strike. Dif ferentials include but are not limited to dehydration, vasovagal, electrolyte disturbances, intracranial bleed therefore emergent labs and imaging indicated. Labs and imaging is reassuring. Departure Disposition: 01 HOME / SELF CARE / HOMELESS Impression: Primary Impression: Fall Condition: Stable Discharge Instructions: Fall Prevention in the Home, Adult, [id number] Referrals: NO PRIMARY CARE PROVIDER (PCP) Signature Scribe Signature: No scribe Attestation: The note accurately reflects work and decisions made by me.Shemar Alfonso MD 11/20/24 23:50 SHEMAR ALFONSO MD Nov 20, 2024 21:42
[2024-11-20 22:01] LABS: MEAN PLATELET VOLUME 8.4 FL (7.4-10.4); RED CELL DISTRIBUTION WIDTH 14.9 % (11.5-14.5)
[2024-11-20 22:04] LABS: CREATININE 1.05 MG/DL (0.40-0.90); TOTAL CARBON DIOXIDE 26.5 MMOL/L (24-32); eCRCL 34 ML/MIN; eGFR 50 ML/MIN
[2024-11-20 23:16] LABS: LEUKOCYTE ESTERASE ,URINE NEGATIVE (Neg); NITRITES, URINE NEGATIVE (Neg); OCCULT BLOOD,URINE NEGATIVE (Neg)
[2024-11-20 23:39] LABS: UA COLLECTION TYPE NON-SPECIFIED
[2024-11-21 00:31] VITALS: BP 126/59; PULSE 62; RESP 16; O2SAT 98
== END 2024-11-21 00:33 | disposition home or self-care (01) ==
LOC: ER 19:15
DX: I95.9 Hypotension, unspecified (principal); Z88.0 Allergy status to penicillin; Z87.440 Personal history of urinary (tract) infections; Z79.82 Long term (current) use of aspirin; Z79.899 Other long term (current) drug therapy; W18.30XA Fall on same level, unspecified, initial encounter; Y93.89 Activity, other specified; Y92.89 Other specified places as the place of occurrence of the external cause; Y99.8 Other external cause status
CPT/HCPCS: 36415; 70450; 72125; 80048; 81003; 84145; 85025; 99284; C1758

== ENCOUNTER 2024-11-25 20:38 | Inpatient (IN) | payer MEDICARE, MEDICAID ==
[~2024-11-25] VITALS: Ht 167.6 cm; Wt 65.0 kg
--- NOTE | 2024-11-25 20:44 | ELECTROCARDIOGRAPH REPORT ---
[facility] Test Date: 2024-11-25 Test Time: 20:40:26 Pat Name: CAMILLA AYALA Department: EMERGENCY ROOM Room: Gender: F Pageant Director: DANA : 1940 Requested By: CHARO JOHNSON Order Number: [id number] Reading MD: Measurements Intervals English Rate: 59 P: 44 IL: 149 QRS: 55 QRSD: 153 T: 96 QT: 513 QTc: 509 Interpretive Statements Sinus bradycardia Right bundle branch block Please click the below link to view image of tracing.
--- NOTE | 2024-11-25 21:11 | RADIOLOGY REPORT ---
EXAM: DI CHEST,SINGLE VIEW HISTORY: CP TECHNIQUE: 1 view of the chest COMPARISON: DI CHEST,SINGLE VIEW on DOS: 11/07/24 FINDINGS/IMPRESSION: LUNGS: No pleural effusion, consolidation, or pneumothorax. Low lung volumes, which cause crowding of the bronchovascular markings. MEDIASTINUM: Mild cardiomegaly. BONES: Age-indeterminate superior endplate height loss of L1 measuring up to 10 percent OTHER: None.
[2024-11-25 21:47] LABS: CREATININE 1.14 MG/DL (0.40-0.90); PRO BRAIN NATRIURETIC PEPTIDE 238 PG/ML (0-450); TOTAL CARBON DIOXIDE 25.7 MMOL/L (24-32); eCRCL 36 ML/MIN; eGFR 46 ML/MIN
[2024-11-25 21:49] LABS: MEAN PLATELET VOLUME 8.8 FL (7.4-10.4); RED CELL DISTRIBUTION WIDTH 14.8 % (11.5-14.5)
--- NOTE | 2024-11-25 22:13 | RADIOLOGY REPORT ---
CLINICAL HISTORY: Mental status change TECHNIQUE: Helical scanning was performed of the head from the skull base to the vertex. Multiplanar reconstructions were performed. This exam was performed according to our departmental dose optimization program. Up-to-date CT equipment and radiation dose reduction techniques are utilized as appropriate. CTDI 62. DLP 1229.1 COMPARISON: CT CT HEAD on DOS: 11/20/24, CT CT HEAD on DOS: 10/31/24, CT CT FACIAL BONES/SOFT TISSUE on DOS: 10/28/24, CT CT STROKE ALERT on DOS: 10/28/24, CT CT HEAD on DOS: 10/24/24 FINDINGS: There is no evidence for acute intracranial hemorrhage, acute ischemic changes, mass, mass effect, or extra-axial fluid collection. There is no hydrocephalus or midline shift. There is no effacement of the cerebral sulci and basal subarachnoid cisterns. The valera-white matter differentiation is well maintained. The imaged paranasal sinuses are clear. There has been bilateral cataract extraction. IMPRESSION: NO ACUTE INTRACRANIAL ABNORMALITY SEEN.
[2024-11-25 23:14] LABS: LEUKOCYTE ESTERASE ,URINE NEGATIVE (Neg); NITRITES, URINE NEGATIVE (Neg); OCCULT BLOOD,URINE NEGATIVE (Neg)
[2024-11-25 23:16] LABS: UA COLLECTION TYPE NON-SPECIFIED
[2024-11-25 23:23] LABS: SQUAMOUS EPITHELIAL CELL,UR FEW /LPF (FEW)
--- NOTE | 2024-11-25 23:36 | Physician Documentation ---
History of Present Illness ~ Chief Complaint: Syncope Stated Complaint: HYPOTENSION/ALTERED Time Seen by MD: 20:52 Primary Medical Doctor: danielle Mode of Arrival: EMS HPI Patient was brought to the hospital by EMS after she had a syncopal episode. Occurred while she was on the toilet she passed out for a couple of minutes. She lives at an assisted living home. She has a history of dementia she is unable to give any history. Medication Reconciliation Allergies: Coded Allergies: Penicillins (Verified Allergy, Unknown, Rash, vomiting, 11/20/24) Scheduled Aspirin (Aspirin Ec), 1 TAB PO DAILY, (Reported) Carbidopa/Levodopa (Carbidopa-Levo ER 50-200 Tab), 1 TAB PO HS, (Reported) Carbidopa/Levodopa 25/100 MG* (Sinemet 25/100 MG*), 1 TAB PO 5X/DAY, (Reported) Donepezil Hcl (Donepezil Hcl), 1 TAB PO DAILY, (Reported) Duloxetine HCl (Duloxetine HCl), 2 CAP PO DAILY, (Reported) Gabapentin (Gabapentin), 1.5 TAB PO DAILY, (Reported) Lisinopril (Lisinopril), 10 MG PO DAILY Quetiapine Fumarate (Seroquel), 2 TAB PO HS, (Reported) Scheduled PRN Melatonin (Melatonin), 1 TAB PO HS PRN for sleep, (Reported) Past Medical History Past Medical History: Parkinson's Disease, UTI Past Surgical History: no surgical history Alcohol Use: None Lives with: Family Lives In: Home Physical Exam Vital Signs: Temperature: 96.8, Source: Oral, Heart Rate: 60, Respiratory Rate: 13, BP: 102/56, Pulse Oximetry: 99, Weight: 65.000 Physical Exam General: Awake and Alert, no acute distress. HEENT: Conjunctiva pink, Sclera clear, Mucus Membranes moist. Neck: Supple without masses and tenderness. Resp: Unlabored. Lungs clear to auscultation bilaterally. Heart: Regular Rate and rhythm, normal S1 and S2 without murmur, rub or gallop. Abdomen: Soft and non tender no organomegaly Extremities: No cyanosis,clubbing or edema. Skin: Warm and Dry. Neuro: GCS 15; nonverbal no obvious facial droop moves all extremities Progress Results/Orders Results/Orders Orders - CHARO JOHNSON MD Chest,Single View (11/25/24 20:59) Monitor (11/25/24 20:41) Saline Lock (11/25/24 20:41) Oxygen (11/25/24 20:41) Hs Troponin I W Calculations (11/25/24 22:41) Hs Troponin I W Calculations (11/25/24 23:41) Culture Blood (11/25/24 20:41) Straight Cath For Urine Sample (11/25/24 20:41) Ct Head (11/25/24 21:55) Cult Urine + [place] [address] (11/25/24 23:23) Completed Orders - CHARO JOHNSON MD Chest,Single View (11/25/24 20:59) Cbc/Diff (11/25/24 20:41) PBNP (11/25/24 20:41) Electrocardiogram (11/25/24 20:41) Hs Troponin I W Calculations (11/25/24 20:41) Procalcitonin (11/25/24 20:41) Lacticsepsis (11/25/24 20:41) Ct Head (11/25/24 21:55) CMP (11/25/24 20:56) Ua W/Microscopic, Cult If Ind (11/25/24 22:56) Vital Signs 11/25/24 11/25/24 11/25/24 11/25/24 20:40 21:00 21:30 22:00 Temp 96.8 96.8 96.8 96.8 Pulse 59 59 63 63 Resp 17 16 16 15 B/P (MAP) 89/50 92/50 (64) 101/55 (70) 102/56 (71) Pulse Ox 94 95 96 94 11/25/24 11/25/24 22:38 22:58 Temp 96.8 Pulse 60 Resp 13 13 B/P (MAP) 102/56 (71) Pulse Ox 99 Laboratory Tests Test 11/25/24 20:56 11/25/24 22:56 11/25/24 23:00 White Blood Count 6.7 Red Blood Count 3.44 L Hemoglobin 10.2 L Hematocrit 30.0 L Mean Corpuscular Volume 87.4 Mean Corpuscular Hemoglobin 29.5 Mean Corpuscular Hemoglobin Concent 33.8 Red Cell Distribution Width 14.8 H Platelet Count 246 Mean Platelet Volume 8.8 Neutrophils (%) (Auto) 81.9 H Lymphocytes (%) (Auto) 8.0 L Monocytes (%) (Auto) 7.6 Eosinophils (%) (Auto) 2.0 Basophils (%) (Auto) 0.5 Neutrophils # (Auto) 5.5 Lymphocytes # (Auto) 0.5 L Monocytes # (Auto) 0.5 Eosinophils # (Auto) 0.1 Basophils # (Auto) 0.0 CBC Comment Sodium Level 144 Potassium Level 3.6 Chloride Level 111 H Carbon Dioxide Level 25.7 Anion Gap 7 L Blood Urea Nitrogen 25 H Creatinine 1.14 H Estimated GFR/1.73 m2 46 BUN/Creatinine Ratio 21.9 H Glucose Level 134 H Lactic Acid Level 1.3 Calcium Level 7.7 L Total Bilirubin 0.7 Aspartate Amino Transf (AST/SGOT) 18 Alanine Aminotransferase (ALT/SGPT) < 6 L Alkaline Phosphatase 72 Troponin I High Sensitivity 15 Pro-B-Type Natriuretic Peptide 238 Total Protein 5.1 L Albumin 2.8 L Globulin 2.3 L Albumin/Globulin Ratio 1.2 Procalcitonin < 0.05 Chemistry Comments Urine Specimen Description Non-specified Urine Color Yellow Urine Clarity Clear Urine pH 5.5 Urine Specific [place] >=1.030 Urine Protein Trace Urine Glucose (UA) Negative Urine Ketones 15 H Urine Occult Blood Negative Urine Nitrite Negative Urine Bilirubin Small Urine Urobilinogen 1.0 Urine Leukocyte Esterase Negative Urine RBC 0-2 Urine WBC 5-10 H Urine Squamous Epithelial Cells Few Urine Bacteria 2+ Urine Culture Indicated Indicated Volume Urine Centrifuged 10 ml Urine Comment Microbiology Date/Time Source Procedure Growth Status 11/25/24 21:03 Blood Arm Left Blood Culture - Preliminary NEGATIVE (LESS THAN 24 HOURS) Resulted Medical Decision Making Findings EKGs interpreted by me shows a sinus rhythm with a right bundle-branch block axis is normal there was no ST elevation or depression. Patient is here after a syncopal episode while she was having a bowel movement. On arrival she is nonverbal. She is here with her daughters who state that this is deviation from her baseline and she has had some falls recently so I ordered a head CT. Head CT was negative. EN route and on arrival she was hypotensive this did respond to IV fluids. I ordered blood cultures IV ceftriaxone and she will be admitted to the hospital for hypotension secondary to dehydration and altered mental status secondary to metabolic encephalopathy from UTI. Appears that her syncopal episode was likely vasovagal was occurred while she was on the toilet. Departure Disposition: ADMITTED INPATIENT Admission Level of Care: Med/Surg with Tele Impression: Primary Impression: Syncope Qualified Codes: R55 - Syncope and collapse Additional Impressions: Metabolic encephalopathy Dehydration Condition: Stable Referrals: NO PRIMARY CARE PROVIDER (PCP) Critical Care Note Critical Care Note This patient had a high probability of sudden, clinically significant deterioration, which required the highest level of physician preparedness to intervene urgently. The patient required and I delivered critical care from time of arrival until disposition. Critical care time was separate from procedural such as intubation or central line placement or cardioversion. Critical care included initial assessment of the seriously ill patient, initiation of diagnostic studies and treatment, management of life-threatening and/or end organ supporting interventions that required frequent physician assessment, and phone consultation with other providers as outlined in the progress notes. Spent with family or surrogates is included only if the patient was not capable of providing the necessary information or participating in medical decision-making. Total critical care time: [35] minutes Signature Scribe Signature: no scribe Attestation: no scribe CHARO JOHNSON MD Nov 25, 2024 23:36
[2024-11-25] MEDS: CefTRIAXone/D5W-Rocephin 1gm 50 ML IV ONE (23:59)
[2024-11-26] VITALS (9 sets, daily range): BP systolic 138–168; BP diastolic 57–83; PULSE 57–86; RESP 12–21; TEMP 97.7–98.4; O2SAT 94–99
[2024-11-26] MEDS ORDERED: magnesium Cl slow-release 64mg tablet PO PRN (01:05)
[2024-11-26] MEDS ORDERED: potassium Cl 20 mEq SR tablet PO PRN ×2 (01:05)
[2024-11-26] MEDS ORDERED: ondansetron/PF 4mg/2ml inj IV PRN (01:05)
[2024-11-26] MEDS ORDERED: mag hydrox/Alum hydrox/simeth 30ml oral suspension PO PRN (01:05)
[2024-11-26] MEDS ORDERED: magnesium hydroxide 30ml (MOM) UD suspension PO PRN (01:05)
[2024-11-26] MEDS ORDERED: potassium Cl 40MEQ/1/2NS 520ml 520 ML IV PRN (01:05)
[2024-11-26] MEDS ORDERED: magnesium sulf-water 4G/100mL 100 ML IV PRN (01:05)
[2024-11-26] MEDS ORDERED: magnesium sulf-water 2g/50mL 50 ML IV PRN (01:05)
[2024-11-26] MEDS: normal saline 1000ml 1,000 ML IV SCH (01:58)
--- NOTE | 2024-11-26 03:11 | HISTORY AND PHYSICAL-Residence ---
History & Physical Providers to CC Resident Creating Document: MOUNA VILLARREAL, RES ~ History of Present Illness Primary Medical Doctor: danielle Reason for Admit\Complaint: Syncopal episode History of Present Illness 84-year-old female with a past medical history significant for advanced dementia, prior TIA (4 weeks ago), and recurrent mechanical falls, presented to the Emergency Department after a syncopal episode at her assisted living facility ([facility]). History is limited due to patients advanced dementia. Additional information was obtained via telephone from her daughter, who was her primary historian. The daughter reported that the patient was using the restroom at her living facility when she suddenly became unresponsive while seated on the toilet. The episode lasted approximately 34 minutes, during which she appeared pale but did not exhibit seizure-like activity, tongue biting, or incontinence. She did not fall or sustain head trauma. Denied chest pain or palpitations or diaphoresis. The episode was sudden with no prodromal signs. Patient couldnt undergo an MRi due to the presence of bladder stimulator. The daughter further noted that the patients mental status today is significantly below her baseline, while she normally has moderate cognitive impairment but can answer simple questions, today she was nonverbal and minimally responsive. There were no recent fevers, vomiting, or diarrhea, and no known medication changes. The patient is known to have a DNR status. At presentation, vital signs were BP 102/76 mmHg, HR bradycardic in the 50s60s, and afebrile. EKG showed sinus bradycardia with normal ID interval and no heart block or ischemic changes. CT head revealed no acute findings. Chest X-ray showed mild cardiomegaly but no focal consolidation or pulmonary edema. Echocardiogram from previous admission demonstrated an EF of 5055% with mild aortic sclerosis. Laboratory workup revealed Hgb 10.2, WBC normal, creatinine 1.14 mg/dL, procalcitonin negative, and UA with 510 WBCs but negative nitrites and leukocyte esterase. Allergies: Coded Allergies: Penicillins (Verified Allergy, Unknown, Rash, vomiting, 11/20/24) Home Medications Home Medications Active Reported Donepezil Hcl 10 Mg Tablet 1 Tab PO DAILY Sinemet 25/100 MG* (Carbidopa/Levodopa) 1 Each Tablet 1 Tab PO 5X/DAY Melatonin 5 Mg Tablet 1 Tab PO HS PRN Seroquel (Quetiapine Fumarate) 25 Mg Tablet 2 Tab PO HS Gabapentin 600 Mg Tablet 1.5 Tab PO DAILY Duloxetine HCl 30 Mg Capsule.dr 2 Cap PO DAILY Carbidopa-Levo ER 50-200 Tab (Carbidopa/Levodopa) 50 Mg-200 Mg Tablet.er 1 Tab PO HS Aspirin Ec (Aspirin) 81 Mg Tablet.dr 1 Tab PO DAILY Past Medical History Past Medical History Hypertension Advanced dementia Orthostatic hypotension Parkinson's disease UTI History of AMS Past Surgical History Surgical History Comment Bilateral total knee replacement Ankle replacement Hysterectomy (unknown reason) Past Social History Social History Comment As per daughter: Patient Quit smoking 35 years ago Alcohol: Quit 5 years ago Denied illicit use of drugs Lives at [facility] living [facility] Ambulates using a walker PCP Dr. Thornton Sled Maker: Dr. José Miguel Lopez (reason for follow up unknown) - last visit a couple of years ago Dr. Doss , at [facility], for Parkinson's disease Alcohol Use: None Lives with: Family Lives In: Home ROS ROS Could not complete review of symptoms Exam Vitals: Vital Signs Date Time Temp Pulse Resp B/P (MAP) Pulse Ox O2 Delivery O2 Flow Rate FiO2 11/26/24 02:35 96.8 60 15 144/69 (94) 99 0 General: Drowsy, altered, disoriented HEENT: Atraumatic, normocephalic, EOMI, anicteric sclera ; pink conjunctiva Neck: Trachea midline. Supple, full range of motion, no JVD Cardiac: Regular rhythm, regular rate with systolic murmurs all over the precordium. Respiratory: Diminished breath sounds with no wheezing Gastrointestinal: Abdomen symmetric, non-distended, soft, normal bowel sounds x4 quadrant, no hepatosplenomegaly Musculoskeletal: No pedal edema, no cyanosis Neurological: Could not be performed; facial droop with slurred speech noted ( symptoms since 6 weeks, not acute); Rigidity and resting tremors present - upper and lower extremities; Skin: Warm and dry Diagnostic Data Last Recorded Lab Results: 11/25/24205511/25/242055 Advance Care Planning Advanced Care plannin - 30 Minutes Additional Plan 1.Syncope Likely Vasovagal (Micturition Syncope) Syncopal episode occurred while seated for urination, consistent with vasovagal/micturition syncope EKG: Sinus bradycardia, no blocks, no arrhythmia or ischemia CT head: Negative for acute intracranial pathology Echo previous admission: Low normal LV function, mild aortic sclerosis, unlikely structural cardiac cause BP borderline low; possible volume depletion No seizure activity and no trauma Patient couldn't undergo an MRI due to the presence of bladder stimulator. Plan: Gentle IV hydration with normal saline 100 cc/hour Cardiac Monitoring: Continuous telemetry while inpatient to detect acute arrhythmias. EKG shows sinus bradycardia with no ID prolongation or any AV blocks Echocardiogram (recent: Low-normal EF) with mild aortic stenosis Consider Holter/Event monitor for outpatient follow-up if recurrent episodes of persistent Follow up with Carotid Doppler USG Consider Cardiology and neurology consultation based on tele and complete workup Orthostatic / Autonomic Evaluation: Orthostatic vitals ordered Monitor for symptoms with position change Laboratory and Metabolic Evaluation: BMP, CBC, calcium, glucose: Normal; magnesium levels ordered TSH levels ordered BNP normal Monitor urine output; maintain =0.5 mL/kg/hr Ammonia levels ordered Medication Review: Patient is on anti Parkinson's medications which can contribute to hypotension and syncope, Given recent syncopal episode and borderline BP please hold Parkinson's medications temporarily Resume once blood pressure and mentation improves. Pending med rec 2.Altered Mental Status Likely Post-syncopal / Metabolic Encephalopathy on Baseline Dementia Daughter reports mentation below baseline Likely multifactorial: transient hypoperfusion from vasovagal episode, dehydration, and underlying dementia No evidence of infection, stroke, or metabolic derangement on initial workup CT head and ammonia not concerning UA mildly abnormal but without nitrites/leukocyte esterase; could be chronic colonization or residual UTI Afebrile, no clear infectious source. CXR without pneumonia, procalcitonin negative. Plan: Continue frequent neuro checks Monitor for improvement with hydration and rest Avoid RECRUITING [employer]IST-depressant medications Repeat UA and culture if fever or clinical changes occur Ordered Rocephin 1gm IV daily empirically per title i assistant Ordered CT Chest/Abdomen and pelvis to further evaluate for causes of her encephalopathy 4 SUZI, prerenal-vasomotor nephropathy Creatinine 1.14 mg/dL, mild elevation possible due to dehydration or reduced intake Urine output adequate Plan: Gentle IV fluids for hydration NS 100 cc/hour Avoid nephrotoxic medications Repeat BMP in AM 5. Normocytic Anemia (Hgb 10.2 g/dL) Chronic, stable. No signs of active bleeding. Plan: Monitor H/H Continue supportive care Iron studies, B12 and folate ordered 6.Advanced Dementia Baseline cognitive decline; now more impaired post-syncopal event DNR status known. Plan: Supportive care Avoid sedatives or anticholinergic medications 7. Hypertension / Bradycardia Currently patient has soft blood pressures BP 102/76 mmHg, sinus bradycardia on EKG. No AV block. Possibly vagally mediated during episode. Plan: Hold rate-limiting meds Hold home medication lisinopril 5 mg until blood pressure improves Continue plate stacker hand vitals closely NS at 100 cc/hour, continue telemetry monitoring 8. Parkinson's disease: We will Parkinson's medications in view of recent hypotension syncopal episode Resume after mentation improves 9. Mild aortic stenosis Recent echocardiogram from previous admission shows low-normal EF with mild Regular outpatient monitoring Code Status: DNR DVT Prophylaxis: Heparin SQ Nutrition: NPO, BSS ordered PT: Ordered Prognosis: Guarded Mouna Villarreal MD Internal Medicine Resident, PGY-2 Attending Addendum Pt was seen and discussed with the team agree with assessment and plan as documented Date of Service: Nov 26, 2024 Billing Provider: TIANNA FORRESTER MD, GAURAV, RES Nov 26, 2024 03:11 TIANNA FORRESTER MD Nov 26, 2024 09:50
[2024-11-26 07:00] LABS: % IRON SATURATION 19 % (11-46)
[2024-11-26] MEDS: K and/or MAG REPLACEMENT MC SCH (07:49)
[2024-11-26] MEDS: heparin, porcine 5000 units/ml vial SQ SCH (07:59)
[2024-11-26] MEDS: docusate sod 100mg capsule PO SCH (07:59)
--- NOTE | 2024-11-26 10:16 | VASCULAR REPORT ---
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 : PHIL FREIRE Preliminary Report The above named patient was referred for a NON-INVASIVE CEREBROVASCULAR EVALUATION. The evaluation includes grayscale imaging, color flow Doppler and spectral analysis of the bilateral carotid and vertebral arteries. Patient IN-PATIENT L ttihnBilateral Indications Syncopal Episode Risk Factors Hypertension: Hx of tobacco use TIA x4 weeks ago Doppler Spectral Velocity Analysis Right Left pCCA 96/5 cm/s pCCA 77/12 cm/s dCCA 61/13 cm/s dCCA 54/8 cm/s ECA 74/ cm/s ECA 75/ cm/s pICA 66/15 cm/s pICA 51/11 cm/s Filomena 69/18 cm/s Filomena 73/23 cm/s dICA 57/13 cm/s dICA 74/18 cm/s Vert. 41/11 cm/s Vert. 87/17 cm/s Subcl. 119/ cm/s Subcl. 194/ cm/s ICA/CCA 1.13 ICA/CCA 1.37 Real-Time B-Mode Imaging Area Findings Right Left CCA Plaque Composition Intimal thickening Intimal thickening BIF Plaque Composition Heterogeneous Heterogeneous Plaque Description Irregular Irregular ICA Plaque Composition Heterogeneous Heterogeneous Plaque Description Irregular Irregular ECA Plaque Composition Intimal thickening Intimal thickening Vertebral Antegrade Antegrade Subclavian Multiphasic Multiphasic Impression: <50% stenosis detected within the Internal Carotid Arteries bilaterally. <50% stenosis detected within the External Carotid Arteries and Common Carotid Arteries bilaterally. bilaterally. Antegrade flow noted within the Vertebral Arteries bilaterally. Multiphasic waveforms noted within the Subclavian Arteries
--- NOTE | 2024-11-26 15:53 | RADIOLOGY REPORT ---
CLINICAL HISTORY: Evaluate for infection. TECHNIQUE: CT of the chest, abdomen, and pelvis was performed without IV contrast. Coronal and sagittal reformatted images were performed for better depiction of the anatomy. This exam was performed according to our departmental dose optimization program. Up-to-date CT equipment and radiation dose reduction techniques are utilized as appropriate. CTDI 19.9 DLP 1405 COMPARISON: None FINDINGS: CHEST: There are moderate aortic atherosclerotic calcifications. There is a 3.1 x 1.9 cm outpouching posteriorly to the midthoracic aorta. The heart is normal in size. There are aortic valvular and coronary artery calcifications. No pericardial effusion is seen. No enlarged mediastinal, hilar, or axillary lymph node is present. The central airways are patent. There is no bronchiectasis. There are mild centrilobular and minimal paraseptal emphysematous changes in both lungs, mostly at the apices. There are mild atelectatic changes at both lower lobes. There is no pleural effusion present. ABDOMEN/PELVIS: The spleen, pancreas, adrenal glands, liver, and bladder are grossly unremarkable. There are tiny gallstones versus sludge within the gallbladder neck. The uterus is absent. Hypodense left renal lesion is incompletely characterized due to lack of IV contrast. A right renal calcification is likely vascular. The abdominal aorta is normal in course and caliber. There are moderate to advanced atherosclerotic calcifications. There is no free intraperitoneal air or fluid. There is no enlarged abdominal or pelvic lymph node. There is no bowel wall thickening or dilatation. There is a moderate amount of stool in colon. There is left right posteromedial subcutaneous luteal battery pack lines extending through a sacral foramen on the left. BONES: No acute osseous abnormality is evident. There are several mild chronic thoracic spine compression fractures. IMPRESSION: No acute noncontrast CT abnormality of the chest, abdomen, or pelvis. 3.1 x 1.9 cm outpouching from the mid thoracic aorta posteriorly, the could represent a saccular aneurysm or large pulmonary nodule. Recommend CT chest with IV contrast for better evaluation. Tiny gallbladder neck stones versus sludge. Hysterectomy. Constipation.
[2024-11-26] MEDS: ziprasidone IM 20mg inj **IM only IM ONE (21:22)
[2024-11-26] MEDS: CefTRIAXone/D5W-Rocephin 1gm 50 ML IV SCH (23:43)
[2024-11-27 02:00] VITALS: BP 135/62; PULSE 62; RESP 15; TEMP 97.9; O2SAT 97
[2024-11-27 06:00] VITALS: BP 141/66; PULSE 90; RESP 16; TEMP 97.2; O2SAT 97
[2024-11-27 07:17] LABS: MEAN PLATELET VOLUME 8.5 FL (7.4-10.4); RED CELL DISTRIBUTION WIDTH 14.6 % (11.5-14.5)
[2024-11-27 07:33] LABS: CREATININE 0.58 MG/DL (0.40-0.90); TOTAL CARBON DIOXIDE 26.6 MMOL/L (24-32); eCRCL 70 ML/MIN; eGFR > 90 ML/MIN
[2024-11-27 07:34] LABS: CHOL/HDL RATIO 4.7 (0.00-4.99); LDL CHOLESTEROL 123 MG/DL (50-100)
[2024-11-27 08:00] VITALS: RESP 16; O2SAT 95
[2024-11-27] MEDS: aspirin 81mg, enteric-coated 1 TAB TABLET.DR PO SCH (08:00)
[2024-11-27] MEDS ORDERED: diazepam inj 5 MG/ML inj. IV PRN (11:10)
[2024-11-27] MEDS: morphine 10mg/ml inj. IV PRN (11:29)
[2024-11-27 18:00] VITALS: BP 125/74; PULSE 78; RESP 18; TEMP 97.8; O2SAT 94
[2024-11-27 20:00] VITALS: RESP 21; O2SAT 97
[2024-11-27] MEDS ORDERED: docusate sod 100mg capsule PO SCH (20:00)
--- NOTE | 2024-11-27 20:40 | PROGRESS NOTE- Residence ---
Progress Note - Resident Providers to CC Resident Creating Document: RAYRAY BECKFORD RES CC: JANIYA SMITH MD ~ Antibiotic Timeout Antibiotic Ordered?: Yes Subjective Patient was seen and examined bedside bedside. Patient and the family decided that they want to transition the patient to comfort care Objective Vital Signs Date Time Temp Pulse Resp B/P (MAP) Pulse Ox O2 Delivery O2 Flow Rate FiO2 11/27/24 11:29 16 11/27/24 08:00 95 Room Air 11/27/24 06:00 70 11/27/24 06:00 97.2 141/66 (91) 11/26/24 08:00 0.0 Result Diagram: 11/27/2463211/27/24632 Drowsy, altered, disoriented HEENT: Atraumatic, normocephalic, EOMI, anicteric sclera ; pink conjunctiva Neck: Trachea midline. Supple, full range of motion, no JVD Cardiac: Regular rhythm, regular rate with systolic murmurs all over the precordium. Respiratory: Diminished breath sounds with no wheezing Gastrointestinal: Abdomen symmetric, non-distended, soft, normal bowel sounds x4 quadrant, no hepatosplenomegaly Musculoskeletal: No pedal edema, no cyanosis Extremities: Left knee replacement scar Neurological: Could not be performed; facial droop with slurred speech noted ( symptoms since 6 weeks, not acute); Rigidity and resting tremors present - upper and lower extremities; Skin: Warm and dry Advance Care Planning Advanced Care plannin - 30 Minutes Plan Plan Altered Mental Status secondary to Metabolic Encephalopathy on Baseline Dementia Syncope likely vasovagal SUZI, prerenal-vasomotor nephropathy Normocytic Anemia (Hgb 10.2 g/dL) Parkinson's disease Had a long discussion with the family and they decided to choose comfort care measures for the patient and discontinue all the treatments. Family understands about comfort care measures and is in agreement with the plan. Rayray Beckford MD Internal Medicine Resident, PGY-1 Date of Service: Nov 27, 2024 Billing Provider: JANIYA SMITH MD Common Visit Codes: [id number] INP/OBS CARE(HIGH) RAYRAY BECKFORD RES Nov 27, 2024 20:40 JANIYA SMITH MD Dec 01, 2024 16:41
[2024-11-27 22:00] VITALS: BP 140/72; PULSE 80; RESP 18; TEMP 96.6; O2SAT 98
[2024-11-28] MEDS: scopolamine 1MG/72H patch 1 PATCH PATCH.TD.3 TD SCH (00:15)
[2024-11-28] MEDS ORDERED: diazepam inj 5 MG/ML inj. IV PRN (00:15)
[2024-11-28] MEDS ORDERED: bisacodyl 5mg tablet.DR PO PRN (00:15)
--- NOTE | 2024-11-28 00:21 | PROGRESS NOTE ---
Clinical Note Clinical Note Progress Note: The family were thoroughly counseled regarding her overall clinical status and poor prognosis by the primary team. Comfort care measures were initiated in the hospital, and hospice services will be arranged at home to address pain, dyspnea, nausea, and other distressing symptoms. Pain/dyspnea: Morphine sulfate 2 mg IV q1h PRN or 510 mg PO q2h PRN Anxiety/agitation: Diazepam 10 mg q.4h PRN Terminal secretions: scopolamine patch q72h Nausea: Ondansetron 4 mg IV/PO q6h PRN Fever/pain: Acetaminophen 650 mg PO/LA q6h PRN Constipation (if taking PO): Senna 12 tabs PO BID bisacodyl suppository PRN Discontinued all active treatment per comfort care measures. Code Status: DNR with comfort care Luan Garcia MD Internal Medicine Resident, PGY-2 LUAN GARCIA, RES Nov 28, 2024 00:21
[2024-11-28 02:00] VITALS: BP 136/80; PULSE 78; RESP 16; TEMP 97; O2SAT 96
[2024-11-28 08:00] VITALS: RESP 18
--- NOTE | 2024-11-28 21:31 | DISCHARGE SUMMARY-Residence ---
Discharge Summary Providers to CC Resident Creating Document: RAYRAY BECKFORD RES CC: JANIYA SMITH MD ~ Discharge Summary Admission Diagnosis: SYNCOPE Hospital Course DATE OF ADMISSION: 11/26/24 DATE OF DISCHARGE: 11/28/24 Discharge Diagnosis\Comment: Syncope Likely Vasovagal (Micturition Syncope) Altered Mental Status Likely Post-syncopal / Metabolic Encephalopathy on Baseline Dementia SUZI, prerenal-vasomotor nephropathy Normocytic Anemia (Hgb 10.2 g/dL) Advanced Dementia Hypertension / Bradycardia Parkinson's disease Mild aortic stenosis Operations\Procedures: None Consultants: None Complications: None Condition on DC: Stable for transfer Discharge Summary: HPI as per admitting physician: 84-year-old female with a past medical history significant for advanced dementia, prior TIA (4 weeks ago), and recurrent mechanical falls, presented to the Emergency Department after a syncopal episode at her assisted living facility ([facility]). History is limited due to patients advanced dementia. Additional information was obtained via telephone from her daughter, who was her primary historian. The daughter reported that the patient was using the restroom at her living facility when she suddenly became unresponsive while seated on the toilet. The episode lasted approximately 34 minutes, during which she appeared pale but did not exhibit seizure-like activity, tongue biting, or incontinence. She did not fall or sustain head trauma. Denied chest pain or palpitations or diaphoresis. The episode was sudden with no prodromal signs. Patient couldnt undergo an MRi due to the presence of bladder stimulator. The daughter further noted that the patients mental status today is signi ficantly below her baseline, while she normally has moderate cognitive impairment but can answer simple questions, today she was nonverbal and minimally responsive. There were no recent fevers, vomiting, or diarrhea, and no known medication changes. The patient is known to have a DNR status. Hospital course: 84-year-old female with a past medical history significant for advanced dementia, prior TIA (4 weeks ago), and recurrent mechanical falls, presented to the Emergency Department after a syncopal episode at her assisted living facility ([facility]). Patient was admitted in our hospital and we began diagnostic workup for her syncopal episode; CT head was negative EKG showed sinus bradycardia according to previous admission showed low-normal LV function; treated the patient with IV fluids and event monitor outpatient was recommended. Patient was diagnosed with metabolic encephalopathy with a background of baseline dementia possibly multifactorial although no infection or evidence of stroke was noted, CT head and ammonia were normal. Patient's urinalysis was positive we initiated the patient on Rocephin. Patient also had mild SUZI i nitiated the patient on fluids. Patient has history of Parkinson's; to help patient's medication during the stay because of her recurrent falls and confusion. Patient has had previous admissions pointing towards increased confusion and acute metabolic encephalopathy in the background of dementia and parkinsonism disease While we were working up the patient for her complex history, had a long discussion with the family and they decided to choose comfort care measures for the patient and discontinue all the treatments. The family were thoroughly counseled regarding her overall clinical status and poor prognosis by the primary team. Comfort care measures were initiated in the hospital, and hospice services were arranged at home to address pain, dyspnea, nausea, and other distressing symptoms. Vital Signs Date Time Temp Pulse Resp B/P (MAP) Pulse Ox O2 Delivery O2 Flow Rate FiO2 11/28/24 08:00 18 Room Air 0.0 11/28/24 02:00 97.0 78 136/80 (98) 96 Laboratory Tests Test 11/27/24 06:33 White Blood Count 6.5 X10'3 Red Blood Count 4.07 X10'6 Hemoglobin 11.7 g/dl Hematocrit 35.6 % Mean Corpuscular Volume 87.4 FL Mean Corpuscular Hemoglobin 28.7 PG Mean Corpuscular Hemoglobin Concent 32.8 g/dL Red Cell Distribution Width 14.6 % Platelet Count 284 X10'3 Mean Platelet Volume 8.5 FL Neutrophils (%) (Auto) 78.0 % Lymphocytes (%) (Auto) 11.3 % Monocytes (%) (Auto) 7.4 % Eosinophils (%) (Auto) 2.8 % Basophils (%) (Auto) 0.5 % Neutrophils # (Auto) 5.1 X10'3 Lymphocytes # (Auto) 0.7 X10'3 Monocytes # (Auto) 0.5 X10'3 Eosinophils # (Auto) 0.2 X10'3 Basophils # (Auto) 0.0 X10'3 CBC Comment Sodium Level 149 MMOL/L Potassium Level 3.8 MMOL/L Chloride Level 112 MMOL/L Carbon Dioxide Level 26.6 MMOL/L Anion Gap 10 Blood Urea Nitrogen 10 MG/DL Creatinine 0.58 MG/DL Estimated GFR/1.73 m2 > 90 ML/MIN BUN/Creatinine Ratio 17.2 Glucose Level 77 MG/DL Calcium Level 8.4 MG/DL Magnesium Level 1.8 MG/DL Total Bilirubin 0.8 MG/DL Aspartate Amino Transf (AST/SGOT) 26 U/L Alanine Aminotransferase (ALT/SGPT) 16 U/L Alkaline Phosphatase 83 IU/L Total Protein 5.9 G/DL Albumin 3.0 G/DL Globulin 2.9 G/DL Albumin/Globulin Ratio 1.0 Triglycerides Level 107 MG/DL Cholesterol Level 200 MG/DL LDL Cholesterol 123 MG/DL HDL Cholesterol 43 MG/DL Cholesterol/HDL Ratio 4.7 Chemistry Comments Discharge medications and instructions Pain/dyspnea: Morphine sulfate 2 mg IV q1h PRN or 510 mg PO q2h PRN Anxiety/agitation: Diazepam 10 mg q.4h PRN Terminal secretions: scopolamine patch q72h Nausea: Ondansetron 4 mg IV/PO q6h PRN Fever/pain: Acetaminophen 650 mg PO/WV q6h PRN Constipation (if taking PO): Senna 12 tabs PO BID bisacodyl suppository PRN Discontinued all active treatment per comfort care measures. *Problems/Diagnosis: (1) Syncope Status: Acute (2) Altered mental status Status: Acute (3) Dementia Status: Acute (4) Parkinsonism Status: Acute Total Time Spent on D/C: Up to 30 Minutes Date of Service: Nov 28, 2024 Billing Provider: JANIYA SMITH MD Common Visit Codes: 40577-KXO/OBS DISCH DAY >30min Problem Qualifiers (1) Syncope: Syncope type: unspecified Qualified Codes: R55 - Syncope and collapse RAYRAY BECKFORD, RES Nov 28, 2024 15:48 JANIYA SMITH MD Dec 01, 2024 16:41
== END 2024-11-28 12:55 | disposition hospice, home (50) | DRG 70 ==
LOC: ER 20:39 → ED HOLD 11-26 01:07 → EDBEDREQ 11-26 04:53 → PCU 3S 11-26 05:32
PROVIDERS: ADMIT Internal Medicine; ATTEND Family Medicine
DX: G93.41 Metabolic encephalopathy (principal); N17.0 Acute kidney failure with tubular necrosis; E86.0 Dehydration; G20.A1 Parkinson's disease without dyskinesia, without mention of fluctuations; Z66 Do not resuscitate; F02.80 Dementia in other diseases classified elsewhere, unspecified severity, without behavioral disturbance, psychotic disturbance, mood disturbance, and anxiety; D64.9 Anemia, unspecified; Z79.82 Long term (current) use of aspirin; Z79.899 Other long term (current) drug therapy; Z88.0 Allergy status to penicillin; Z51.5 Encounter for palliative care; Z90.710 Acquired absence of both cervix and uterus
CPT/HCPCS: 36415; 70450; 71045; 71250; 74176; 80053; 80061; 81001; 82140; 82607; 82728; 83540; 83550; 83605; 83735; 83880; 84132; 84145; 84443; 84484; 85025; 87040; 87081; 87088; 92508; 92616; 93005; 93880; 96365; 99291; A4421; C1758; G0378; J0696; J1644; J2274; J3486; J7030